=== PATIENT | female | born 1950 | race Caucasian/White ===

== ENCOUNTER 2021-09-21 18:17 | Emergency (ER) | payer OTHER ==
[~2021-09-21] VITALS: Ht 157.5 cm; Wt 104.5 kg
[2021-09-21] MEDS ORDERED: diphenhydrAMINE 50 MG/ML VIAL IVP ONE (19:00)
[2021-09-21] MEDS ORDERED: IV NORMAL SALINE 1,000ML 1,000 ML IV ONE (19:00)
[2021-09-21] MEDS ORDERED: FAMOTIDINE 20 MG/2 ML VIAL IVP ONE (19:00)
[2021-09-21] MEDS ORDERED: methylPREDNISolone SOD SUCC PF 125 MG/2 ML VIAL. IV ONE (19:00)
[2021-09-21 20:26] VITALS: BP 150/73
[2021-09-21] MEDS ORDERED: PRED50TA PO (20:28)
[2021-09-21] MEDS ORDERED: CETI10TA74 PO (20:28)
[2021-09-21] MEDS ORDERED: FAMO-63 PO (20:28)
--- NOTE | 2021-09-21 20:28 | PHYS DOC ---
Past History Past Medical History: COPD, Diabetes, Hypertension Past Surgical History: No Surgical History Alcohol Use: None Adult General Chief Complaint Chief Complaint: TONGUE SWELLING/INJURY HPI HPI The patient is a 71-year-old female with a history of hypertension on multiple medications including lisinopril, which she states she has taken for many years. She presents for evaluation of isolated mild left-sided tongue swelling with onset at 3 PM, about 3 hours prior to arrival. Patient states the tongue has been swollen to the same degree for the entire time she has been symptomatic; she is not had any progression in her symptoms at all. She denies any associated fevers, nausea or vomiting, swelling of lips or face or throat, pain or difficulty swallowing, change in voice, shortness of breath, rash. She denies any new soaps, shampoos, detergents, environmental exposures, foods or medications. She is alert and pleasantly and appropriately interactive and in absolutely no acute distress with appropriate vital signs upon initial evaluation here in the emergency department. Review of Systems Review of Systems A 12 point review of systems was completed and was negative except where noted in HPI above. Current Medications Current Medications Current Medications Medications (Trade) Dose Ordered Sig/Isela Start Time Stop Time Status Last Admin Dose Admin Diphenhydramine HCl (Benadryl) 50 mg 1X ONCE 09/21/21 19:00 09/21/21 19:01 DC 09/21/21 19:24 50 MG Famotidine (Pepcid Vial) 40 mg 1X ONCE 09/21/21 19:00 09/21/21 19:01 DC 09/21/21 19:25 40 MG Methylprednisolone Sodium Succinate (SOLU-Medrol 125MG VIAL) 125 mg 1X ONCE 09/21/21 19:00 09/21/21 19:01 DC 09/21/21 19:24 125 MG Sodium Chloride 1,000 ml @ 1,000 mls/hr 1X ONCE 09/21/21 19:00 09/21/21 19:59 DC 09/21/21 19:26 1,000 MLS/HR Allergies Allergies Allergies Coded Allergies Type Severity Reaction Last Updated Verified Penicillins Allergy Unknown 09/21/21 Yes Physical Exam Physical Exam 71-year-old female appearing nontoxic and in no acute distress. Head is normoce phalic and atraumatic. Neck is supple and nontender. Oropharynx is moist. Minimal subtle left-sided tongue swelling without erythema. No swelling of lips or face or posterior pharynx. Speaking comfortably in full sentences, tolerating secretions normally. Lungs are clear to auscultation at all stations. There is a normal S1 and S2 without rubs or gallops and capillary refill is appropriate, less than 2 seconds globally. Abdomen is soft, nontender and nondistended. Skin is warm and dry without cyanosis, clubbing or edema. Psychiatrically, the patient demonstrates appropriate mood and affect and is alert. Current Patient Data Vital Signs Vital Signs Date Time Temp Pulse Resp B/P (MAP) Pulse Ox O2 Delivery O2 Flow Rate FiO2 09/21/21 18:24 97.9 105 16 162/76 (104) 97 Room Air EKG EKG [] Radiology/Procedures Radiology/Procedures [] Heart Score C/O Chest Pain: No Risk Factors: Risk Factors: DM, Current or recent (<one month) smoker, HTN, HLP, family history of CAD, obesity. Risk Scores: Risk Factors: DM, Current or recent (<one month) smoker, HTN, HLP, family history of CAD, obesity. Course & Med Decision Making Course & Med Decision Making Probable very mild SHAYEN inhibitor related angioedema. Patient has been observed for multiple hours here in the emergency department and has had absolutely no progression in symptoms. She continues to have very minimal left-sided tongue swelling and no other symptoms of any kind. She states the tongue swelling is perhaps slightly better but not any worse. No significant improvement with steroids and antihistamines. Given minimal symptoms involving the tongue only and no progression of symptoms during an extended period of observation here in the emergency department, seems reasonable to discharge home with strict return precautions and very close follow-up with primary care tomorrow. Patient is advised that she must immediately discontinue use of her lisinopril. She under stands that any progression of her symptoms or any other new symptoms of concern should prompt immediate return to the emergency department for for reevaluation. All questions are answered. Dragon Disclaimer Dragon Disclaimer This electronic medical record was generated, in whole or in part, using a voice recognition dictation system. Departure Departure: Impression: Primary Impression: SHAYNE inhibitor-aggravated angioedema Disposition: HOME / SELF CARE / HOMELESS Condition: IMPROVED Referrals: CHAY WESLEY MD (PCP) Patient Instructions: Angioedema Additional Instructions: Follow-up very closely with your primary care doctor in the office tomorrow as discussed for a reevaluation of your symptoms and to discussion of next best steps in care. You must immediately stop taking your lisinopril as you have had an episode of mild angioedema which is an allergic reaction to that medicine. Take the steroids and antihistamines as prescribed for the next 3 days (these are to cover for other causes of tongue swelling, though we have a lower suspici on that those are the cause for your symptoms today). Return right away for worsening symptoms of any kind or with any other new symptoms of concern. Scripts Famotidine (PEPCID) 20 Mg Tablet 1 TAB PO BID for swelling for 3 Days, #6 TAB 3 Refills Prov: JUDITH PURCELL MD 09/21/21 Cetirizine Hcl (ZYRTEC) 10 Mg Tablet 1 TAB PO DAILY for swelling for 3 Days, #3 TAB 2 Refills Prov: JUDITH PURCELL MD 09/21/21 Prednisone (PREDNISONE) 50 Mg Tablet 50 MG PO DAILY for swelling for 3 Days, #3 TAB Prov: JUDITH PURCELL MD 09/21/21 Problem Qualifiers Primary Impression: SHAYNE inhibitor-aggravated angioedema Encounter type: initial encounter Qualified Codes: T78.3XXA - Angioneurotic edema, initial encounter; T46.4X5A - Adverse effect of angio ouyujh-rppaltndyp-lcxaml inhibitors, initial encounter JUDITH PURCELL MD Sep 21, 2021 20:28
== END 2021-09-21 20:35 | disposition home or self-care (01) ==
LOC: ER 18:17
DX: T78.3XXA Angioneurotic edema, initial encounter (principal); T46.4X5A Adverse effect of angiotensin-converting-enzyme inhibitors, initial encounter; J44.9 Chronic obstructive pulmonary disease, unspecified; E11.9 Type 2 diabetes mellitus without complications; I10 Essential (primary) hypertension; Z88.0 Allergy status to penicillin; Y92.89 Other specified places as the place of occurrence of the external cause
CPT/HCPCS: 96361; 96374; 96375; 99283; J1200; J2930; J3490; J7030

== ENCOUNTER → 2021-10-23 | Outpatient (CLI) | payer OTHER ==
[~2021-10-23] MED LIST: CETI10TA74 PO; FAMO-63 PO; PRED50TA PO
--- NOTE | 2021-10-23 15:29 | RAD ---
EXAM: 1. ULTRASOUND ABDOMINAL AORTA. 2. BILATERAL LOWER EXTREMITY ARTERIAL DOPPLER WITH ANKLE BRACHIAL INDICES. HISTORY: Abdominal aortic aneurysm screening. Hypertension, diabetes, smoking history, bilateral lowe r extremity claudication. COMPARISON: None. FINDINGS: Sonographic evaluation of the abdominal aorta and common iliac arteries was performed. Proximally, the abdominal aorta measures 2.4 x 2.4 cm. In its midportion, 1.9 x 1.9 cm. Distally, 2.0 x 1.5 cm. The right common iliac artery measures 1.4 x 1.1 cm. The left measures 1.1 x 0.9 cm. The systolic velocity within the right common iliac artery is 205 cm/s. Grayscale and Doppler sonographic evaluation of the lower extremities was performed and pressure read ings were assessed. On the right, there are biphasic waveforms throughout, except within the posterior tibial artery wher e they are monophasic. There are elevated peak systolic velocities within the distal superficial femo ral artery at 288 cm/s. On the left, there are biphasic waveforms throughout. Right brachial pressure: 140 mmHg Left brachial pressure: 141 mmHg Right ankle pressure: 129 mmHg Right ankle DEONTE: 0.91 Left ankle pressure: 125 mmHg Left ankle DEONTE: 0.89 IMPRESSION: 1. No abdominal aortic aneurysm. 2. At least mild stenosis within the right common iliac artery. 3. Findings consistent with mildly flow-limiting stenosis proximal to both common femoral arteries. 4. Focal stenosis within the right distal superficial femoral artery. 5. Significantly flow-limiting stenosis within the right posterior tibial artery. 6. Borderline decreased ankle-brachial indices bilaterally. Electronically signed by: Mario Alberto Landaverde MD (10/23/2021 3:26 PM) GIANFRANCO
== END ==
LOC: US 08:14
PROVIDERS: ATTEND Internal Medicine
DX: I70.201 Unspecified atherosclerosis of native arteries of extremities, right leg (principal); I70.8 Atherosclerosis of other arteries
CPT/HCPCS: 76770; 93923; 93925